=== PATIENT | female | born 1985 | race American Indian/Alaskan Native ===

== ENCOUNTER 2021-09-10 10:25 | Outpatient (CLI) | payer BC ==
[2021-09-10 11:46] LABS: Basophils % (Auto) 0.5 % (0.0-1.8); Eosinophils # (Auto) 0.3 K/mm3 (0.0-0.4); Eosinophils % (Auto) 4.7 % (0.0-4.3); Hematocrit 39.9 % (30.3-42.9); Hemoglobin 13.7 gm/dl (10.1-14.3); Lymphocytes # (Auto) 2.2 K/mm3 (1.2-5.4); Lymphocytes % (Auto) 31.9 % (13.4-35.0); Mean Corpuscular HGB Conc 34 % (30-34); Mean Corpuscular Volume 86 fl (79-97); Monocytes # (Auto) 0.4 K/mm3 (0.0-0.8); Monocytes % (Auto) 5.5 % (0.0-7.3); Platelet Count 234 K/mm3 (140-440); Red Blood Count 4.66 M/mm3 (3.65-5.03); Red Cell Distribution Width 13.1 % (13.2-15.2)
[2021-09-10 12:00] LABS: % Iron Saturation 16.82 %; Alanine Aminotransferase 18 units/L (7-56); Albumin 4.5 g/dL (3.9-5); BUN/Creatinine Ratio 16; Blood Urea Nitrogen 14 mg/dL (7-17); Calcium 9.3 mg/dL (8.4-10.2); Chol/HDL Ratio 5.06 %; HDL Cholesterol 50 mg/dL (40-59); Hemolysis Index 4; Iron 54 ug/dL (37-170); LDL Cholesterol,Direct 163 mg/dL (50-130); Total Iron Binding Capacity 321 mcg/dL (250-450)
[2021-09-13 13:15] LABS: Vitamin D, 25-OH, D2 <4 ng/mL
== END 2021-09-10 10:26 | disposition home or self-care (01) ==
LOC: LAB 10:25
PROVIDERS: ATTEND Surgery
DX: Z13.1 Encounter for screening for diabetes mellitus (principal); Z01.812 Encounter for preprocedural laboratory examination; Z13.21 Encounter for screening for nutritional disorder; Z13.29 Encounter for screening for other suspected endocrine disorder; R73.03 Prediabetes; E66.01 Morbid (severe) obesity due to excess calories; E55.9 Vitamin D deficiency, unspecified; K30 Functional dyspepsia
CPT/HCPCS: 36415; 80053; 80061; 82306; 82607; 82728; 83036; 83550; 84443; 85025; 85730

== ENCOUNTER 2021-09-22 06:14 | Day surgery (SDC) | payer BC ==
--- NOTE | 2021-09-22 08:09 | Anesthesia Consultation ---
Anesthesia Consult and Med Hx Date of service: 09/22/21 - Airway Anesthetic Teeth Evaluation: Good (2 missing molars R/L lower) ROM Head & Neck: Adequate Mental/Hyoid Distance: Adequate Mallampati Class: Class I Intubation Access Assessment: Probably Good - Pulmonary Exam CTA: Yes - Cardiac Exam Cardiac Exam: RRR - Pre-Operative Health Status ASA Pre-Surgery Classification: ASA3 Proposed Anesthetic Plan: MAC - Pulmonary Hx Smoking: Yes (quit 1.5 years ago) Hx Asthma: No Hx Sleep Apnea: No - Cardiovascular System Hx Hypertension: Yes (High Cholesterol) Hx Coronary Artery Disease: No Hx Heart Attack/AMI: No - Central Nervous System Hx Seizures: No CVA: No - Gastrointestinal Hx Gastroesophageal Reflux Disease: No - Endocrine Hx Renal Disease: No Hx Liver Disease: No Hx Non-Insulin Dependent Diabetes: Yes Hx Thyroid Disease: No - Hematic Hx Sickle Cell Disease: No - Other Systems Hx Alcohol Use: No Hx Substance Use: No Hx Cancer: No Hx Obesity: Yes - Additional Comments Anesthesia Medical History Comments: no hx of anesthetic complications
--- NOTE | 2021-09-22 08:10 | Anesthesia Day of Surgery ---
Anesthesia Day of Surgery - Day of Surgery Patient Examined: Yes Patient H&P Reviewed: Yes Patient is NPO: Yes
[2021-09-22] MEDS ORDERED: SODIUM CHLORIDE 0.9% 1000 ML 1,000 ML ONE (08:15)
[2021-09-22] MEDS ORDERED: SODIUM CHLORIDE 0.9% 1000 ML 1,000 ML IV SCH (09:30)
--- NOTE | 2021-09-22 09:30 | Discharge Summary ---
Providers - Providers Date of Admission: 09/22/2021 Date of discharge: 09/22/21 Attending physician: PORTIA PALACIOS MD Primary care physician: SUZANNE THOMAS Hospitalization Reason for admission: pre-o planning egd Condition: Good Procedures: egd with bx Hospital course: Pt presented for a pre-op EGD as part of planning for up coming bariatric surgery. Procedure was uneventful and pt recovered well and was d ischarged to home. Disposition: 01 HOME / SELF CARE / HOMELESS Final Discharge Diagnosis (Prints w/discharge instructions): morbid obesity, gerd Core Measure Documentation - Palliative Care Palliative Care/ Comfort Measures: Not Applicable - Core Measures Any of the following diagnoses?: none Exam - Physical Exam Narrative exam: unchanged from pre-op exam Plan Activity: no restrictions Diet: low carbohydrate Follow up with: SUZANNE THOMAS MD [Primary Care Provider] - 7 Days
--- NOTE | 2021-09-22 09:32 | Operative Report ---
Operative Report Operative Report: DATE: 09/22/2021 SURGERY: Upper endoscopy. SURGEON: Merissa Dodd M.D. PROCEDURE: EGD with biopsy PRE OP DX: morbid obesity, GERD POST OP DX: morbid obesity, GERD TYPE OF ANESTHESIA: MAC. ESTIMATED BLOOD LOSS: None. COMPLICATIONS: None. SPECIMENS REMOVED: antral biopsy FINDINGS: 1. Small hiatal hernia. 2. Otherwise, normal esophagus, stomach and first portion of duodenum. INDICATIONS:INDICATION FOR PROCEDURE: Patient is a 36-year-old female with a long history of morbid obesity. She is planned to have a weight loss procedure and is here for preoperative planning EGD. PROCEDURE DETAILS: After consent was reviewed, patient was taken back to the operating room where patient was placed in the left lateral decubitus position and a bite block was placed in the mouth. After a time-out was called, MAC anesthesia was initiated. I then passed the endoscope into her oropharynx, into her esophagus, visualized the entire esophagus, which was all within normal limits. Z-line was noted to about 36cm from incisors. I then visualized the stomach and the first portion of the duodenum and there were no abnormalities I could clearly visualize except for antral gastritis. A cold forceps biopsy of the antrum was taken and will be sent to pathology to evaluate for H.pylori. I then retroflexed the scope in the stomach and visualized the hiatus and I could see a small hiatal hernia. I then desufflated the stomach and removed the endoscope. Patient tolerated procedure well and was transferred to recovery room in good and stable condition.
--- NOTE | 2021-09-22 11:55 | Post Anesthesia Evaluation ---
- Post Anesthesia Evaluation Patient Participated: Yes Airway Patent: Yes Stable Respiratory Function: Yes Nausea/Vomiting: No Temp > 96.8F: Yes Pain Manageable: Yes Adequeate Hydration: Yes Anesthesia Complications: No Block Receding Appropriately: Not Applicable Patient on Ventilator: No
[2021-09-22 13:06] VITALS: BP 135/80
== END 2021-09-22 10:05 | disposition home or self-care (01) ==
LOC: GIO 06:14
PROVIDERS: ATTEND Surgery
DX: K21.9 Gastro-esophageal reflux disease without esophagitis (principal); E66.01 Morbid (severe) obesity due to excess calories; K44.9 Diaphragmatic hernia without obstruction or gangrene; K29.70 Gastritis, unspecified, without bleeding; E78.00 Pure hypercholesterolemia, unspecified; I10 Essential (primary) hypertension; E11.9 Type 2 diabetes mellitus without complications; Z68.41 Body mass index [BMI] 40.0-44.9, adult; Z87.891 Personal history of nicotine dependence; Z88.8 Allergy status to other drugs, medicaments and biological substances
CPT/HCPCS: 43239; 81025; 82962; 88305; 88342; J7030

== ENCOUNTER 2021-12-16 09:09 | Outpatient (CLI) | payer BC ==
[~2021-12-16 09:09] MED LIST: propofoL 200 MG/20 ML VIAL IV ONE
[2021-12-16 12:06] LABS: Chol/HDL Ratio 4.29 %
--- NOTE | 2021-12-16 13:02 | Fluoroscopy Report ---
BARIUM SWALLOW Indication: E66.01 Z01.818. Technique: Single and double contrast barium technique utilized to evaluate the esophagus. FINDINGS: To begin the exam, swallowing was evaluated in the lateral position under direct fluorosco py. Swallowing was normal. No mucosal irregularity, mass, mass effect, or critical stenosis. Occasional tertiary contractions were witnessed in the mid to distal esophagus with to and fro flow of contrast agent in the esophagus . No hiatal hernia or gastroesophageal reflux was witnessed. IMPRESSION: Mild esophageal dysmotility. Fluoroscopic time: 2.4 minutes Number of fluoroscopic images: 20 Signer Name: Vineet Becerril Jr, MD Signed: 12/16/2021 12:58 PM Workstation Name: [id number]
--- NOTE | 2021-12-16 21:16 | Treadmill Report ---
DATE OF SERVICE: 12/16/2021 ORDERING PHYSICIAN: Dr. Dodd. INDICATION: Preop for bariatric surgery. Being supervise and read by Dr. Contreras for a treadmill stress test on 12/16/2021. DESCRIPTION OF PROCEDURE: The patient's baseline EKG, sinus rhythm with no ST abnormalities. The patient's baseline heart rate 78, baseline blood pressure 133/89. The patient exercised on Peterson protocol for 7 minutes 15 seconds, achieved max heart rate at 176, which is 90% of max predicted heart rate. Peak blood pressure 180/80. There were no EKG changes suggestive of ischemia. SUMMARY: 1. Negative treadmill EKG. 2. Fair exercise capacity, 7 minutes 15 seconds Peterson protocol. 3. There were no EKG changes or arrhythmias suggestive of ischemia. 4. There was no exaggerated blood pressure response to activity. TID: [id number] RECEIPT: [id number] VRM/STD
--- NOTE | 2021-12-17 11:34 | Treadmill Report ---
[facility] Test Date: 2021-12-16 Test Time: 10:25:00 Pat Name: ALYSSA BAUMAN Department: Room: Gender: F Pot Fisher: Tori Vaughan : 1985 Requested By: PORTIA PALACIOS Order Number: [id number] Reading MD: Woodrow Tucker Interpretive Statements Electronically Signed On 12-17-2021 11:34:06 EDT by Woodrow Tucker
== END 2021-12-16 09:10 | disposition home or self-care (01) ==
LOC: FLUORO 09:09
PROVIDERS: ATTEND Surgery
DX: K22.89 Other specified disease of esophagus (principal); E11.65 Type 2 diabetes mellitus with hyperglycemia; E78.5 Hyperlipidemia, unspecified; I10 Essential (primary) hypertension; Z87.891 Personal history of nicotine dependence; Z79.899 Other long term (current) drug therapy; Z98.890 Other specified postprocedural states; Z88.8 Allergy status to other drugs, medicaments and biological substances
CPT/HCPCS: 36415; 74220; 80061; 83036; 93017; J2704